=== PATIENT | male | born 1960 | race African-American/Black ===

== ENCOUNTER 2019-01-15 07:55 | Emergency (ER) | payer SELFPAY ==
[~2019-01-15] VITALS: Ht 165.1 cm; Wt 74.8 kg
[2019-01-15 08:22] VITALS: BP 155/98
[2019-01-15] MEDS ORDERED: TETANUS-DIPTH-ACEL PERTUSSIS 0.5ML SYRG IM ONE (09:45)
[2019-01-15] MEDS ORDERED: ACETAMINOPHEN 500 MG TAB PO ONE (09:45)
== END 2019-01-15 09:48 | disposition home or self-care (01) ==
LOC: ER 07:55
DX: S01.01XA Laceration without foreign body of scalp, initial encounter (principal); W01.0XXA Fall on same level from slipping, tripping and stumbling without subsequent striking against object, initial encounter; Y93.89 Activity, other specified; Y99.8 Other external cause status; Y92.89 Other specified places as the place of occurrence of the external cause
CPT/HCPCS: 12004; 70450; 90471; 90715

== ENCOUNTER 2019-01-26 09:31 | Emergency (ER) | payer SELFPAY ==
[~2019-01-26] VITALS: Ht 165.1 cm; Wt 74.8 kg
[2019-01-26 09:59] VITALS: BP 137/74
== END 2019-01-26 10:33 | disposition home or self-care (01) ==
LOC: ER 09:35
DX: S01.01XD Laceration without foreign body of scalp, subsequent encounter (principal); X58.XXXD Exposure to other specified factors, subsequent encounter